=== PATIENT | female | born 1965 | race African-American/Black ===

== ENCOUNTER 2017-10-15 13:01 | Emergency (ER) | payer OTHER ==
--- NOTE | 2017-10-15 13:22 | PDOC ---
History of Present Illness - General Stated Complaint: ASTHMA Time Seen by Provider: 10/15/17 13:21 History Source: Patient Exam Limitations: No Limitations - History of Present Illness Initial Comments: 10/15/17 13:42 CHIEF COMPLAINT: Wheezing HISTORY OF PRESENT ILLNESS: This is a 52-year-old female with a history of asthma (uses albuterol MDI as needed, no hospitalizations/intubations) and hypertension who presents with dyspnea and wheezing since last night. She is her albuterol inhaler without relief. She has run out of albuterol nebulizer solution. She reports feeling very dyspneic on minimal exertion. She has chest "tightness" when walking or coughing but denies pain at rest. She has had some dry cough. She denies chest pain, fevers, calf pain/leg swelling, travel, family /personal history of hypercoagulability, recent surgery, and cigarette smoking. Vital signs on arrival are no full for BP 162/110. Peak expiratory flow is 230. REVIEW OF SYSTEMS: GENERAL/CONSTITUTIONAL: No fever or chills. No weakness. No weight change. HEAD, EYES, EARS, NOSE AND THROAT: No change in vision. No ear pain or discharge. No sore throat. CARDIOVASCULAR: No chest pain or palpitations. RESPIRATORY: See HPI. GASTROINTESTINAL: No nausea, vomiting, diarrhea or constipation. GENITOURINARY: No dysuria, frequency, or change in urination. MUSCULOSKELETAL: No joint or muscle swelling or pain. No neck or back pain. SKIN: No rash or easy bruising. NEUROLOGIC: No headache, vertigo, loss of consciousness, or loss of sensation. PSYCHIATRIC: No depression or anxiety. ENDOCRINE: No increased thirst. No abnormal weight change. HEMATOLOGIC/LYMPHATIC: No anemia, easy bleeding, or history of blood clots. ALLERGIC/IMMUNOLOGIC: No hives or skin allergy. No latex allergy. PHYSICAL EXAM: GENERAL: The patient is awake, alert, and fully oriented, in no acute distress. HEAD: Normal with no signs of trauma. ENT: Pupils equal, round and reactive to light, extraocular movements intact, sclera anicteric, conjunctiva clear. Neck supple. LUNGS: Scant end-expiratory wheezing bilaterally. Normal excursion. No respiratory distress or use of accessory muscles. Speaking full sentences. CV: RRR, S1/S2, no MRG. Cap refill < 2 sec. Dyspneic walking about 15 feet to bathroom. ABDOMEN: Soft, non-distended, non-tender. EXTREMITIES: Normal range of motion, no edema, no calf tenderness. NEUROLOGICAL: Normal speech, normal gait. CN II-XII grossly intact. PSYCH: Normal mood, normal affect. SKIN: Warm, dry, normal turgor, no rashes or lesions noted. Past History - Past Medical History Allergies/Adverse Reactions: Allergies Allergy/AdvReac Type Severity Reaction Status Date / Time No Known Allergies Allergy Verified 10/15/17 13:16 Home Medications: Ambulatory Orders Albuterol Sulfate Inhaler - [Ventolin HFA Inhaler -] 2 inh PO Q4H #1 inh Nebivolol HCl [Bystolic] 20 mg PO DAILY 10/15/17 Asthma: Yes HTN: Yes - Surgical History Cholecystectomy: Yes - Suicide/Smoking/Psychosocial Hx Smoking History: Never smoked Have you smoked in the past 12 months: No Hx Alcohol Use: No Drug/Substance Use Hx: No Substance Use Type: None ED Treatment Course - LABORATORY CBC & Chemistry Diagram: 10/15/17 14:00 10/15/17 14:00 Medical Decision Making - Medical Decision Making 10/15/17 13:45 A/P: 52-year-old female with dyspnea and wheezing. PERC neg. -Follow PEF -EKG -Cardiac labs given RFs, minimal wheezing -CXR -DuoNeb -Re-assess 10/15/17 15:58 EKG NSR at 82bpm CXR: normal chest Trop neg x 1 10/15/17 16:25 Patient re-evaluated after 3 neb treatments and feeling better. No wheezing. Able to ambulate without dyspnea. Will dc with albuterol neb solution and 3 days of prednisone. Followup instructions and return precautions reviewed. *DC/Admit/Observation/Transfer Diagnosis at time of Disposition: Dyspnea Qualifiers: Dyspnea type: unspecified Qualified Code(s): R06.00 - Dyspnea, unspecified - Discharge Dispostion Disposition: HOME Condition at time of disposition: Improved Decision to Admit order: No - Referrals Referrals: Cain Alvarez MD [Primary Care Provider] - Call tomorrow - Patient Instructions Printed Discharge Instructions: Asthma -- Adult Additional Instructions: -Use your nebulizer every 6 hours as needed and take prednisone for 3 days as prescribed -Follow up with Dr. Alvarez this week -Return for worsening shortness of breath, chest pain, fevers, or any other symptoms - Post Discharge Activity
[2017-10-15 13:23] VITALS: TEMP 99.2; BMI 33.9
[2017-10-15] MEDS ORDERED: ALBUTEROL SO4 2.5/IPRATROPIUM 0.5 INH SOL 3 ML VIAL.NEB. NEB ONE ×3 (13:27→15:35)
[2017-10-15 14:18] LABS: BASO % 0.8 % (0-2.0); EOS % 3.8 % (0-4.5); HEMATOCRIT 39.8 % (32.4-45.2); HEMOGLOBIN 12.9 GM/dL (10.7-15.3); LYMPH % 32.5 % (8-40); MCH 28.9 pg (25.7-33.7); MCHC 32.4 g/dl (32.0-36.0); MEAN CELL VOLUME 89.2 fl (80-96); MEAN PLT VOLUME 11.8 fl (7.5-11.1); MONO % 6.7 % (3.8-10.2); NEUT % 56.2 % (42.8-82.8); PLATELET COUNT 212 K/MM3 (134-434); RBC 4.46 M/mm3 (3.60-5.2); RDW 14.3 % (11.6-15.6); WHITE BLOOD COUNT 9.1 K/mm3 (4.0-10.0)
[2017-10-15 14:26] LABS: INR 0.99 (0.83-1.09); PROTHROMBIN TIME (PATIENT) 11.2 SEC (9.7-13.0)
[2017-10-15 14:35] LABS: ALBUMIN 3.5 g/dl (3.4-5.0); ALK PHOS 72 U/L (45-117); ANION GAP 9 MMOL/L (8-16); BILIRUBIN,TOTAL 0.3 mg/dL (0.2-1.0); BLOOD UREA NITROGEN 13 mg/dL (7-18); CALCIUM 8.7 mg/dL (8.5-10.1); CHLORIDE 109 mmol/L (98-107); CO2 25 mmol/L (21-32); CREATININE 0.6 mg/dL (0.55-1.02); GLUCOSE,RANDOM 97 mg/dL (74-106); SGPT/ALT 56 U/L (12-78); SODIUM 143 mmol/L (136-145); TOT PROT 7.2 g/dl (6.4-8.2)
[2017-10-15 14:47] LABS: POTASSIUM 3.9 mmol/L (3.5-5.1); SGOT/AST 40 U/L (15-37)
[2017-10-15] MEDS: ALBUTEROL SO4 0.083% IH SOL 2.5 MG/3 ML VIAL.NEB. NEB SCH (15:34)
[2017-10-15] MEDS ORDERED: ALBUTEROL SO4 0.083% IH SOL 2.5 MG/3 ML VIAL.NEB. NEB ONE (15:37)
--- NOTE | 2017-10-15 15:56 | EKG ---
Test Reason : Blood Pressure : / mmHG Vent. Rate : 082 BPM Atrial Rate : 082 BPM P-R Int : 142 ms QRS Dur : 084 ms QT Int : 392 ms P-R-T Axes : 031 017 018 degrees QTc Int : 457 ms NORMAL SINUS RHYTHM NORMAL ECG NO PREVIOUS ECGS AVAILABLE Confirmed by LEYDA BHATT MD ([id number]) on 10/15/2017 3:56:32 PM Referred By: Confirmed By:LEYDA BHATT MD
[2017-10-15 16:51] VITALS: BP 150/89; PULSE 72
== END 2017-10-15 16:50 | disposition home or self-care (01) ==
LOC: JER 13:01
PROC: 3E0F7GC Introduction of Other Therapeutic Substance into Respiratory Tract, Via Natural or Artificial Opening (ICD-10-PCS; principal; 2017-10-15)
PROC: 3E0F7GC Introduction of Other Therapeutic Substance into Respiratory Tract, Via Natural or Artificial Opening (ICD-10-PCS; 2017-10-15)
PROC: 3E0F7GC Introduction of Other Therapeutic Substance into Respiratory Tract, Via Natural or Artificial Opening (ICD-10-PCS; 2017-10-15)
DX: J45.909 Unspecified asthma, uncomplicated (principal); I10 Essential (primary) hypertension
CPT/HCPCS: 36415; 71046-TC-FY; 80053; 83880; 84484; 85025; 85610; 93005; 93010; 99283-25; J7620